=== PATIENT | male | born 1955 | race Caucasian/White ===

== ENCOUNTER 2019-07-30 11:34 | Emergency (ER) | payer OTHER, MEDICAID ==
[~2019-07-30] VITALS: Ht 180.3 cm; Wt 74.8 kg
[2019-07-30 11:39] VITALS: BP 124/84
--- NOTE | 2019-07-30 11:40 | NUR ---
BIBA AND PLACED IN BED 02
--- NOTE | 2019-07-30 11:52 | NUR ---
MONIKA FROM [facility] (ASSISTED LIVING) AOX4 .PT AWAKE ,ALERT , AFIBRILE ,SCE ,CBS, WITH MULTIPLE RED RASHES ON RT LEG C/O PAIN AT 8/10 ,DENIES INTAKE OF FOOD OUT OF THE ORDINARY WELL MEDS. HX- DVT (NOT ON BLOOD THINNERS), LT AKA WITH PHANTOM LIMB PAIN, CHRONIC FULL BODY PAIN 2/2 HX CHASE, SZ (LAST SZ 2 YEARS AGO), HARD OF HEARING.
--- NOTE | 2019-07-30 11:55 | NUR ---
DR PECK AT BEDSIDE EVALUATING PT.
--- NOTE | 2019-07-30 12:35 | NUR ---
FREDY AT BEDSIDE.
[2019-07-30 12:50] LABS: BASOPHILS % (AUTO) 0.7 % (0.0-2.0); EOSINOPHILS # (AUTO) 0.2 K/uL (0-0.4); EOSINOPHILS % (AUTO) 3.4 % (0.0-4.0); HEMATOCRIT 45.2 % (36-52); HEMOGLOBIN 14.8 g/dL (12.0-18.0); LYMPHOCYTES # (AUTO) 1.2 K/uL (2.0-11.5); LYMPHOCYTES % (AUTO) 21.5 % (20.5-51.1); MEAN CORPUSCULAR HEMOGLOBIN 30 pg (27-31); MEAN CORPUSCULAR HGB CONC 33 g/dL (33-37); MEAN CORPUSCULAR VOLUME 90.3 fL (80-94); MONOCYTES # (AUTO) 0.7 K/uL (0.8-1.0); NEUTROPHILS # (AUTO) 3.5 K/uL (1.8-7.7); NEUTROPHILS % (AUTO) 62.4 % (42.2-75.2); PLATELET COUNT (AUTO) 203 K/uL (140-450); RED CELL DISTRIBUTION WIDTH 14.2 % (11.6-13.7); WHITE BLOOD COUNT (AUTO) 5.6 K/uL (4.8-10.8)
[2019-07-30 13:21] LABS: ANION GAP 9.3 (8-16); CARBON DIOXIDE 30.7 mmol/L (21-32); CREATININE 1.2 mg/dL (0.6-1.3); PROTHROMBIN TIME 10.4 secs (10.8-13.4)
[2019-07-30 18:09] VITALS: BP 124/84
--- NOTE | 2019-07-30 18:09 | NUR ---
Patient discharged with v/s stable. Written and verbal after care instructions given and explained regarding cellulitis. Patient alert, oriented and verbalized understanding of instructions. [facility]. All questions addressed prior to discharge. ID band removed. Patient advised to follow up with PMD. Rx of bactrim given. Patient educated on indication of medication including possible reaction and side effects. Opportunity to ask questions provided and answered.
== END 2019-07-30 18:09 | disposition home or self-care (01) ==
LOC: MED 11:34
DX: L03.115 Cellulitis of right lower limb (principal); Z87.448 Personal history of other diseases of urinary system; Z88.8 Allergy status to other drugs, medicaments and biological substances
CPT/HCPCS: 36415; 80048; 85025; 85610; 93971; 99284; Q0092

== ENCOUNTER 2021-09-22 10:38 | Emergency (ER) | payer OTHER, MEDICAID ==
[~2021-09-22] VITALS: Ht 182.9 cm; Wt 72.6 kg
[2021-09-22 10:42] VITALS: BP 149/85
--- NOTE | 2021-09-22 10:53 | NUR ---
PATIENT WAS TAKEN TO IMAGING
--- NOTE | 2021-09-22 11:06 | NUR ---
PATIENT IS BACK FROM IMAGING
--- NOTE | 2021-09-22 11:25 | NUR ---
X-RAY AT BEDSIDE
--- NOTE | 2021-09-22 11:55 | NUR ---
PT'S LACS CLEANED AND IRRIGATED WITH WARM WATER AND DRESSED WITH BULKEE DRESSING AND NON-ADHERENT ON LEFT ELBOW AND PLACED BANDAID ON LEFT SIDE EYEBROW.
[2021-09-22] MEDS ORDERED: LIDOCAINE MPF 1% 10 MG/ML VIAL IM ONE (12:35)
[2021-09-22] MEDS ORDERED: HYDROcodone/APAP 10/325 MG 1 TAB TAB PO STA (13:02)
--- NOTE | 2021-09-22 14:32 | NUR ---
Patient discharged with v/s stable. Written and verbal after care instructions given. Patient verbalized understanding. Wheel Chair AssisteD. All questions addressed prior to discharge. Advised to follow up with PMD.
--- NOTE | 2021-09-22 14:39 | NUR ---
Chart checked and completed. The patient's care was reviewed and supervised by Rehana Washburn RN.
== END 2021-09-22 14:31 | disposition home or self-care (01) ==
LOC: MED 10:38
DX: S01.112A Laceration without foreign body of left eyelid and periocular area, initial encounter (principal); S63.92XA Sprain of unspecified part of left wrist and hand, initial encounter; S83.91XA Sprain of unspecified site of right knee, initial encounter; Z86.718 Personal history of other venous thrombosis and embolism; W19.XXXA Unspecified fall, initial encounter; Y93.89 Activity, other specified; Y92.89 Other specified places as the place of occurrence of the external cause; Y99.8 Other external cause status
CPT/HCPCS: 12011; 70450; 72125; 73130; 73562; 96372; 99284; J2001